=== PATIENT | female | born 1970 | race Caucasian/White ===

== ENCOUNTER 2020-08-14 06:39 | Emergency (ER) | payer MEDICAID ==
[2020-08-14 07:35] LABS: BASOPHIL 0.7 % (0-2); EOSINOPHIL 6.5 % (0-5); HCT 43.3 % (37.0-47.0); HGB 13.5 g/dl (12.5-16.0); LYMPHOCYTE 34.6 % (15-48); MCH 26.2 pg (25.0-31.0); MCHC 31.2 g/dL (32.0-36.0); MCV 83.9 fL (78.0-100.0); MONOCYTE 6.4 % (0-12); MPV 10.2 fL (6.0-9.5); NEUTROPHIL 51.6 % (41-80); NRBC 0; PLT 277 K/uL (150-400); RBC 5.16 M/uL (4.20-5.40); RDW 15.5 % (11.5-14.0); WBC 8.1 K/uL (4.0-10.5)
[2020-08-14 07:44] LABS: ALBUMIN 3.4 g/dL (3.4-5.0); BILIRUBIN - TOTAL 0.5 mg/dL (0.2-1.0); BUN/CREAT RATIO (CALC) 17.9 RATIO; CREATININE 0.67 mg/dL (0.51-0.95); GLOBULIN (CALCULATION) 3.5 g/dL; POTASSIUM 3.8 mmol/L (3.5-5.1); TOTAL PROTEIN 6.9 g/dL (6.4-8.2)
[2020-08-14 08:11] LABS: BILIRUBIN NEGATIVE (NEGATIVE); BLOOD NEGATIVE Ery/uL (NEGATIVE); CLARITY CLEAR (CLEAR); COLOR YELLOW (YELLOW); GLUCOSE (U) NORMAL (NORMAL); LEUKOCYTES NEGATIVE Leu/uL (NEGATIVE); NITRITE NEGATIVE (NEGATIVE); PROTEIN NEGATIVE (NEGATIVE); UROBILINOGEN 0.2 mg/dL (0.2-1.0)
== END 2020-08-14 10:34 | disposition home or self-care (01) ==
LOC: FER 06:39
PROVIDERS: Internal Medicine
DX: E11.9 Type 2 diabetes mellitus without complications (principal); E03.9 Hypothyroidism, unspecified; F17.200 Nicotine dependence, unspecified, uncomplicated; Z79.4 Long term (current) use of insulin; Z79.899 Other long term (current) drug therapy
CPT/HCPCS: 36415; 80053; 81003; 83036; 85025; 99284

== ENCOUNTER 2020-11-01 11:16 | Emergency (ER) | payer MEDICAID, OTHER ==
[2020-11-01 12:29] LABS: BASOPHIL 0.4 % (0-2); EOSINOPHIL 1.4 % (0-5); HCT 44.7 % (37.0-47.0); HGB 14.1 g/dl (12.5-16.0); LYMPHOCYTE 13.2 % (15-48); MCH 26.6 pg (25.0-31.0); MCHC 31.5 g/dL (32.0-36.0); MCV 84.3 fL (78.0-100.0); MONOCYTE 3.7 % (0-12); MPV 10.6 fL (6.0-9.5); NEUTROPHIL 80.8 % (41-80); NRBC 0; PLT 231 K/uL (150-400); RDW 16.8 % (11.5-14.0); WBC 11.8 K/uL (4.0-10.5)
[2020-11-01 12:30] LABS: BILIRUBIN NEGATIVE (NEGATIVE); BLOOD NEGATIVE Ery/uL (NEGATIVE); CLARITY CLEAR (CLEAR); COLOR YELLOW (YELLOW); GLUCOSE (U) NORMAL (NORMAL); LEUKOCYTES NEGATIVE Leu/uL (NEGATIVE); NITRITE NEGATIVE (NEGATIVE); PROTEIN NEGATIVE (NEGATIVE); SPECIFIC GRAVITY 1.015 (1.001-1.030); UROBILINOGEN 0.2 mg/dL (0.2-1.0)
[2020-11-01 12:44] LABS: ALBUMIN 3.5 g/dL (3.4-5.0); BILIRUBIN - TOTAL 0.6 mg/dL (0.2-1.0); BUN/CREAT RATIO (CALC) 21.4 RATIO; CREATININE 0.7 mg/dL (0.51-0.95); GLOBULIN (CALCULATION) 3.5 g/dL; POTASSIUM 3.6 mmol/L (3.5-5.1)
[2020-11-01] MEDS ORDERED: BENTYL10 MG PO (13:47)
== END 2020-11-01 14:33 | disposition home or self-care (01) ==
LOC: FER 11:16
PROVIDERS: Emergency Medicine
DX: R10.11 Right upper quadrant pain (principal); E11.9 Type 2 diabetes mellitus without complications; F17.210 Nicotine dependence, cigarettes, uncomplicated; Z79.82 Long term (current) use of aspirin; Z79.84 Long term (current) use of oral hypoglycemic drugs
CPT/HCPCS: 36415; 80053; 81003; 83690; 85025; Q9967

== ENCOUNTER 2020-11-23 22:45 | Emergency (ER) | payer SELFPAY ==
[~2020-11-23 22:45] MED LIST: BENTYL10 MG PO
[2020-11-24 01:04] LABS: BASOPHIL 0.6 % (0-2); EOSINOPHIL 3.1 % (0-5); HCT 44.1 % (37.0-47.0); LYMPHOCYTE 33.2 % (15-48); MCH 27.6 pg (25.0-31.0); MCHC 31.7 g/dL (32.0-36.0); MONOCYTE 5.9 % (0-12); MPV 10.2 fL (6.0-9.5); NEUTROPHIL 56.6 % (41-80); NRBC 0; PLT 298 K/uL (150-400); RBC 5.07 M/uL (4.20-5.40); RDW 17.3 % (11.5-14.0); WBC 12.6 K/uL (4.0-10.5)
[2020-11-24 01:26] LABS: ALBUMIN 3.5 g/dL (3.4-5.0); BILIRUBIN - TOTAL 0.3 mg/dL (0.2-1.0); CREATININE 0.75 mg/dL (0.51-0.95); GLOBULIN (CALCULATION) 4.1 g/dL; POTASSIUM 3.7 mmol/L (3.5-5.1); TOTAL PROTEIN 7.6 g/dL (6.4-8.2)
[2020-11-24 01:38] LABS: LACTIC ACID 0.3 mmol/L (0.4-1.9)
[2020-11-24] MEDS ORDERED: SYNTHROID175 MCG PO (07:19)
[2020-11-24] MEDS ORDERED: PHENERGAN25 M1 PO (07:19)
[2020-11-24] MEDS ORDERED: NORCO 5-325 TA1 EACH PO (07:19)
== END 2020-11-24 08:06 | disposition home or self-care (01) ==
LOC: FER 22:45
PROVIDERS: Emergency Medicine Emergency Medical Services
DX: R51.9 Headache, unspecified (principal); R10.11 Right upper quadrant pain; R11.2 Nausea with vomiting, unspecified; D32.9 Benign neoplasm of meninges, unspecified; F17.210 Nicotine dependence, cigarettes, uncomplicated; Z20.822 Contact with and (suspected) exposure to COVID-19; Z79.899 Other long term (current) drug therapy; Z98.890 Other specified postprocedural states
CPT/HCPCS: 36415; 70450; 80053; 83605; 83690; 85025; 86140; J1100; J1885; J2405; J2765; J7030; U0002

== ENCOUNTER 2020-12-15 12:28 | Emergency (ER) | payer SELFPAY ==
[~2020-12-15 12:28] MED LIST changes: +NORCO 5-325 TA1 EACH PO; +PHENERGAN25 M1 PO; +SYNTHROID175 MCG PO
== END 2020-12-15 17:18 | disposition home or self-care (01) ==
LOC: FER 12:28
DX: R51.9 Headache, unspecified (principal); E11.9 Type 2 diabetes mellitus without complications; I10 Essential (primary) hypertension
CPT/HCPCS: 70450; J1885